=== PATIENT | female | born 1980 | race Caucasian/White ===

== ENCOUNTER 2016-12-18 06:37 | Emergency (ER) | payer OTHER ==
[~2016-12-18] VITALS: Ht 160 cm; Wt 68.2 kg
[~2016-12-18 06:37] MED LIST: IBUP-1149 PO; LOR75 PO; TIZA4TABA PO; TRAM100T2 PO
[2016-12-18 06:49] VITALS: BP 129/92; PULSE 125; RESP 20; O2SAT 96
--- NOTE | 2016-12-18 08:07 | ED.REPORT ---
[facility]-Forg Illness Date of Service Dec 18, 2016 ED Provider: Jaylan Pandya MD Patient is a 36 year old female who presents to the ED due to left ear pain onset yesterday day morning. She reports that it "hurts to swallow," and has a hx of ear infections. She complains that she feels "jittery" and denies vomiting. Pt is allergic to Amoxicillin. Nursing Notes Stated Complaint: POSS EAR INFECTION Chief Complaint: FLU/Cold Symptoms Nursing Notes Reviewed: Yes Allergies: Coded Allergies: Penicillins (Verified Allergy, Intermediate, HIVES, 12/18/16) ciprofloxacin (Verified Allergy, Unknown, 12/18/16) ciprofloxacin HCl (Verified Allergy, Unknown, 12/18/16) Uncoded Allergies: TAPE (Allergy, Severe, BLISTERS, 08/12/10) Scheduled Azithromycin (Zithromax (Z-Virgil)) 250 Mg Tablet 250 MG PO DIRECTED Take two tablets by mouth on day 1, then take one tablet daily on days 2 through 5. Hydrocod/APAP-Expunged, Do Not Renew! (VICODIN 7.5/300-Expunged Drug, Do Not Renew) 1 Ea Tablet 1 EA PO PRN IBUPROFEN-Expunged Drug, Do Not Renew! (IBUPROFEN-Expunged Drug, Do Not Renew!) 600 Mg Tablet 600 MG PO Q4 Meclizine (Bonine) 25 Mg Tab.chew 25 MG PO BID Tizanidine-Expunged Drug, Do Not Renew! (Tizanidine-Expunged Drug, Do Not Renew! ) 4 Mg Tablet 8 MG PO BID Tramadol-Expunged Drug, Do Not Renew! (Tramadol-Expunged Drug, Do Not Renew!) 100 Mg Tab.sr.24h 50 MG PO Q4 General Time Seen by Provider: 08:10 Chief Complaint Other (ear infection ) Hx Obtained From: Patient Arrived By: Walk-in Onset Occurred: 1 day ago Symptom Duration: Since onset Progression Since Onset: Gradually worsening Severity: Current: Moderate Recent Healthcare: No recent doctor visit Similar Sx Previous: Yes Past Medical History Past Medical History hx of otitis media Past Surgical History denies Smoking History Unknown if Ever Smoker Ambulatory Status Independent Review of Systems Review of Systems Note: hurts to swallow Ears / Nose / Throat: Reports: Earache bilateral GI: Denies: Vomiting Complete sys rev & neg: except as marked. Physical Exam Initial Vital Signs Vital Signs (First) Date Time Temp Pulse Resp B/P Pulse Ox O2 Delivery O2 Flow Rate FiO2 12/18/16 06:49 37.4 125 20 129/92 96 Room Air Initial VS: Reviewed, Vital signs abnormal General/Constitutional: Awake, Alert, Cooperative Neck: Atraumatic, Supple, No meningismus, Full range of motion, No adenopathy, No swelling, Non-tender, No midline vertebral tend Respiratory / Chest: Atraumatic, Breath sounds NL, Breath sounds = bilat, No respiratory distress, No rales, No rhonchi, No wheezing, No retractions Cardiovascular: Heart rate NL, Regular rhythm, Heart sounds NL, No gallop, No murmurs, No rubs Skin: Atraumatic, Color NL, Warm, Dry Neurologic: Oriented X3, Speech NL, No motor deficits, No sensory deficits Left Ear / Mastoid: Positive: Tympanic membrane red left ear TM dull, red, and thickened right ear normal Canal is partially collused Mastoid non-tender Interpretation & Diagnostics Lab Results Interpretation Lab Results Interpretation: negative for influenza A & B Re-Evaluation & MDM Med Decision/Clinical Course 36-year-old with recurrent left otitis media and vertiginous symptoms likely related to it. She was started on azithromycin, meclizine, and was given 2 Vicodin tablets here in the emergency room. She will follow up with her primary provider as needed. She is encouraged to drink lots of fluids. Re-Evaluation/Progress : Time of Eval: 08:10 Patient Status: Condition unchanged Re-Evaluation/Progress Note: Pt rechecked. Informed of diagnosis of left ear infection and treatment plan. Pt understands and agrees with plan. F/U and RTER warnings given. All questions addressed. Counseled Regarding: Diagnosis, Lab results, Need for follow-up, When/why to return to ED Patient Discharge & Departure Impression: Primary Impression: Otitis media Otitis media type: unspecified Laterality: left Chronicity: unspecified Qualified Code: H66.92 - Otitis media, unspecified, left ear Disposition: Home Discharge Condition All VS Reviewed: Yes Condition: Stable Additional Instructions: Thank you for coming to the Emergency Department today. You have an left ear infection which is putting pressure on the inner ear causing lightheadedness/ vertigo symptoms.. Drink plenty of fluids and get lots of rest. You will be given an azithromycin and meclizine, take as directed. He was given 2 Vicodin for pain, do not drive for 4-6 hours. Return to the Emergency Department for any new or worsening symptoms. We hope you feel better soon! Referrals: [facility] (PCP) Scribe Attestation Portion of this note were transcribed by Memo Garduno. I, Dr. Pandya, personally performed the history, physical exam, and medical decision-making: I reviewed and confirmed the accuracy for the information in the transcribed note. Signed by: arabella William, 12/18/16 0820 Jaylan Pandya MD Dec 18, 2016 08:07 MEMO GARDUNO Dec 18, 2016 08:20
[2016-12-18] MEDS ORDERED: HYDROcodone-APAP 5-325 mg Tablet PO ONE (08:15)
[2016-12-18] MEDS ORDERED: AZIT250T4 PO (08:28)
[2016-12-18] MEDS ORDERED: MECL-114 PO (08:28)
[2016-12-18 08:43] VITALS: BP 110/72; PULSE 104; O2SAT 98
[2016-12-18 08:51] VITALS: BP 110/72; PULSE 104; RESP 20; O2SAT 98
[2016-12-19] MEDS ORDERED: CEPH-512 PO (05:02)
[2016-12-19] MEDS ORDERED: IBUP100O80 PO (05:02)
[2016-12-19] MEDS ORDERED: LIDO20SO MM (05:35)
== END 2016-12-18 08:55 | disposition home or self-care (01) ==
LOC: SED 06:37
DX: H66.92 Otitis media, unspecified, left ear (principal); Z88.0 Allergy status to penicillin; Z88.1 Allergy status to other antibiotic agents

== ENCOUNTER 2016-12-19 04:28 | Emergency (ER) | payer OTHER ==
[~2016-12-19] VITALS: Ht 160 cm; Wt 68.2 kg
[~2016-12-19 04:28] MED LIST changes: +AZIT250T4 PO; +MECL-114 PO
[2016-12-19 04:30] VITALS: BP 134/88; RESP 18; O2SAT 100
--- NOTE | 2016-12-19 04:53 | ED.REPORT ---
HPI-General Illness Date of Service Dec 19, 2016 ED Provider: Hima Good Patient is a 36 year old female who was seen yesterday in the department for sore throat and ear pain and was diagnosed with a L ear infection. Today she presents to the ED complaining of R ear pain and worsening throat pain. Patient has not filled her prescriptions yet. She took 2 pills from her z-pack yesterday morning after her ED visit. She denies nausea, vomiting, or any other symptoms. Nursing Notes Stated Complaint: BILATERAL EAR INFECTION Chief Complaint: ENT & Mouth Nursing Notes Reviewed: Yes Allergies: Coded Allergies: Penicillins (Verified Allergy, Intermediate, HIVES, 12/19/16) ciprofloxacin (Verified Allergy, Unknown, 12/19/16) ciprofloxacin HCl (Verified Allergy, Unknown, 12/19/16) Uncoded Allergies: TAPE (Allergy, Severe, BLISTERS, 08/12/10) Scheduled Azithromycin (Zithromax (Z-Virgil)) 250 Mg Tablet 250 MG PO DIRECTED Take two tablets by mouth on day 1, then take one tablet daily on days 2 through 5. Cephalexin (Keflex) 500 Mg Capsule 500 MG PO 12/19/16 Hydrocod/APAP-Expunged, Do Not Renew! (VICODIN 7.5/300-Expunged Drug, Do Not Renew) 1 Ea Tablet 1 EA PO PRN IBUPROFEN-Expunged Drug, Do Not Renew! (IBUPROFEN-Expunged Drug, Do Not Renew!) 600 Mg Tablet 600 MG PO Q4 Meclizine (Bonine) 25 Mg Tab.chew 25 MG PO BID Tizanidine-Expunged Drug, Do Not Renew! (Tizanidine-Expunged Drug, Do Not Renew! ) 4 Mg Tablet 8 MG PO BID Tramadol-Expunged Drug, Do Not Renew! (Tramadol-Expunged Drug, Do Not Renew!) 100 Mg Tab.sr.24h 50 MG PO Q4 Scheduled PRN Ibuprofen (Child Ibuprofen) 100 Mg/5 Ml Oral.susp 400 MG PO q4-6 hours PRN PRN pain, fever Lidocaine HCl (Lidocaine HCl Viscous) 20 Mg/1 Ml Solution 20 MG MM [id number] PRN PRN throat pain General Time Seen by MD: 04:52 Chief Complaint Ear pain Hx Obtained From: Patient Arrived By: Walk-in Recent Healthcare: Recent doctor visit Similar Sx Previous: Yes Past Medical History Past Medical History hx of otitis media Past Surgical History denies Smoking History Current Every Day Smoker Social History Drug Use: THC Other Social History: Local resident Ambulatory Status Independent Review of Systems Full Review of Systems Ears / Nose / Throat: Reports: Earache right, Sore throat GI: Denies: Nausea, Vomiting Complete sys rev & neg: except as marked. Physical Exam Vital Signs Vital Signs Date Time Temp Pulse Resp B/P Pulse Ox O2 Delivery O2 Flow Rate FiO2 12/19/16 06:16 36.9 88 14 132/78 Room Air 12/19/16 04:30 36.2 110 18 134/88 100 Room Air Initial VS: Reviewed General/Constitutional: Well-developed, Well-nourished Head / Eyes: Atraumatic, Normocephalic Respiratory: No respiratory distress Abdomen / GI: Soft, Non-tender Skin: Warm, Dry Neurologic: Alert, Oriented, Nonfocal Psychiatric: Mood/affect normal, Behavior normal, Normal thought content ENT: No peritonsillar abscess, No trismus Pharynx / Tonsils / Uvula: Positive: Pharyngeal erythema Manages secretions well. Bilat exudate. L TM blocked by cerumen. R TM nL. Neck: No meningismus Bilateral adenopathy with tenderness. Re-Eval/Medical Decision Med Decision/Clinical Course 36-year-old female presents with a sore throat and sore ears, eye day after evaluation for the same issue. She has not filled her prescription yet. She did receive a starter dose of azithromycin. She does have otitis as well as a beefy red purulent-appearing throat consistent with strep. Azithromycin is probably inadequate coverage for otitis, and she was provided with Rocephin with Keflex to follow. Decadron single dose given here for relief of her throat swelling. Discharged in stable condition. No evidence of retropharyngeal abscess. Abscess precautions discussed in detail. Time of Eval: 05:06 Patient Status: Condition unchanged Re-Evaluation/Progress Note: Rechecked patient. Discussed plan for discharge. Patient understands and agrees with plan. All questions addressed at this time. Counseled Regarding: Diagnosis, Need for follow-up, When/why to return to ED Discharge & Departure Shift Change Sign-Out Response to Therapy: Improved Primary Impression: Pharyngitis Additional Impression: Otitis media Disposition: Home Discharge Condition All VS Reviewed: Yes Condition: Stable Patient Instructions: Pharyngitis (ED), Peritonsillar Abscess (ED), Otitis Media (ED) Additional Instructions: We do not see evidence of an abscess in your throat, but if your symptoms worsen despite treatment, return for reevaluation. Keflex three times daily for ten days Clear fluids and advance as tolerated to normal diet Motrin or Tylenol for fever and discomfort. Follow-up with your doctor in the office. May follow-up with residency clinic if local physician needed. Referrals: [facility] Scribe Attestation Portions of this note were transcribed by Mason Lucas. I, Dr. Good personally performed the history, physical exam and medical decision-making; I reviewed and confirmed the accuracy of the information in the transcribed note. Signed by: Mason Lucas 12/19/16, 0511 copies to: [facility] [place] Good MD Dec 19, 2016 04:52 MASON LUCAS Dec 19, 2016 04:59
[2016-12-19] MEDS ORDERED: Dexamethasone 20 mg/2 mL Oral Solution PO ONE (05:00)
[2016-12-19] MEDS ORDERED: cefTRIAXone Inj 500 MG, Lidocaine PF 1% Inj 1 ML in Syringe 1 EACH IM ONE (05:00)
[2016-12-19] MEDS ORDERED: CEPH-512 PO (05:02)
[2016-12-19] MEDS ORDERED: IBUP100O80 PO (05:02)
[2016-12-19] MEDS ORDERED: Ibuprofen Suspension 20 mg/mL 5 mL Suspension PO ONE (05:05)
[2016-12-19] MEDS ORDERED: LIDO20SO MM (05:35)
[2016-12-19 06:16] VITALS: BP 132/78; PULSE 88; RESP 14
== END 2016-12-19 05:03 | disposition home or self-care (01) ==
LOC: SED 04:28
DX: J02.9 Acute pharyngitis, unspecified (principal); H66.93 Otitis media, unspecified, bilateral; F17.200 Nicotine dependence, unspecified, uncomplicated; Z88.0 Allergy status to penicillin; Z88.1 Allergy status to other antibiotic agents
CPT/HCPCS: 96372; 99283; J0696

== ENCOUNTER 2017-04-02 20:44 | Emergency (ER) | payer OTHER ==
[~2017-04-02] VITALS: Ht 160 cm; Wt 68.2 kg
[~2017-04-02 20:44] MED LIST changes: +CEPH-512 PO; +IBUP100O80 PO; +LIDO20SO MM
[2017-04-02 20:57] VITALS: BP 155/96; PULSE 129; RESP 20; O2SAT 99
--- NOTE | 2017-04-02 21:29 | ED.REPORT ---
HPI-Back Pain Under 40 Date of Service April 02, 2017 ED Provider: Jaylan Pandya MD Pt is a 36 year old female with a history of herniated L4 and L5, and a kidney infection who presents to the ED complaining of vaginal pain onset yesterday morning. The pt is also complaining of diarrhea, dysuria, and left sided lower back pain. She denies nausea, abdominal pain, and vomiting. The pt has had a UTI before when she was with her daughter. Nursing Notes Stated Complaint: POSS KIDNEY INFECTION Chief Complaint: Back Pain or Injury Nursing Notes Reviewed: Yes Allergies: Coded Allergies: Penicillins (Verified Allergy, Intermediate, HIVES, 12/19/16) ciprofloxacin (Verified Allergy, Unknown, 12/19/16) ciprofloxacin HCl (Verified Allergy, Unknown, 12/19/16) Uncoded Allergies: TAPE (Allergy, Severe, BLISTERS, 08/12/10) Scheduled Azithromycin (Zithromax (Z-Virgil)) 250 Mg Tablet 250 MG PO DIRECTED Take two tablets by mouth on day 1, then take one tablet daily on days 2 through 5. Cefuroxime Axetil (Cefuroxime) 500 Mg Tablet 500 MG PO BID Cephalexin (Keflex) 500 Mg Capsule 500 MG PO 12/19/16 Hydrocod/APAP-Expunged, Do Not Renew! (VICODIN 7.5/300-Expunged Drug, Do Not Renew) 1 Ea Tablet 1 EA PO PRN IBUPROFEN-Expunged Drug, Do Not Renew! (IBUPROFEN-Expunged Drug, Do Not Renew!) 600 Mg Tablet 600 MG PO Q4 Meclizine (Bonine) 25 Mg Tab.chew 25 MG PO BID Tizanidine-Expunged Drug, Do Not Renew! (Tizanidine-Expunged Drug, Do Not Renew! ) 4 Mg Tablet 8 MG PO BID Tramadol-Expunged Drug, Do Not Renew! (Tramadol-Expunged Drug, Do Not Renew!) 100 Mg Tab.sr.24h 50 MG PO Q4 Scheduled PRN Ibuprofen (Child Ibuprofen) 100 Mg/5 Ml Oral.susp 400 MG PO q4-6 hours PRN PRN pain, fever Lidocaine HCl (Lidocaine HCl Viscous) 20 Mg/1 Ml Solution 20 MG MM [id number] PRN PRN throat pain General Time Seen by MD: 21:26 Chief Complaint Other (Vaginal pain) Hx Obtained From: Patient Arrived By: Walk-in Sudden in Onset?: Yes Onset Occurred: Just prior to arrival Symptom Duration: 1 day Quality: Painful, Stabbing Severity: Current: Moderate Severity: Maximum: Moderate Recent Healthcare: No recent hospitalization, Recent doctor visit Similar Sx Previous: No Past Medical History Past Medical History hx of otitis media herniated L4 and L5 kidney infection UTI Past Surgical History none reported Smoking History Current Every Day Smoker Social History Other Social History: Local resident Ambulatory Status Independent Review of Systems Review of Systems Note: vaginal pain GI: Reports: Diarrhea, Denies: Abdominal pain, Nausea, Vomiting Female: Reports: Dysuria, Pelvic pain Musculoskeletal: Reports: Back pain Complete sys rev & neg: except as marked. Physical Exam Initial Vital Signs Vital Signs (First) Date Time Temp Pulse Resp B/P Pulse Ox O2 Delivery O2 Flow Rate FiO2 04/02/17 20:57 36.5 129 20 155/96 99 Room Air Initial VS: Reviewed, Vital signs abnormal General/Constitutional: Awake, Alert Behavior: Positive: Tearful Mild to moderate distress Back: Atraumatic, Full range of motion Left CVAT Neurologic: Oriented X3, Speech NL Respiratory / Chest: Atraumatic, Breath sounds NL Abdomen: Atraumatic Diffuse abdominal tenderness, with more pain on the left side. No suprapubic tenderness Lower Extremity / Pelvis / MS: Atraumatic, Full range of motion Head / Eyes: Atraumatic, Normocephalic, PERRL, EOMI ENT: Atraumatic, Airway patent, Mucous membranes moist Upper Extremity / MS: Atraumatic, Full range of motion Skin: Atraumatic, Color NL, No rash, Warm, Dry Psychiatric: Affect NL, Mood NL Interpretation & Diagnostics Lab Results Interpretation Result Diagram: 04/02/17222404/02/172224 Test 04/02/17 21:30 04/02/17 21:55 04/02/17 22:25 Urine Color Yellow (YELLOW) Urine Appearance Slightly cloudy Urine pH 7.0 (5.0-8.0) Urine Specific [place] 1.025 (1.003-1.035) Urine Protein 100mg/dL (NEG,TRACE) Urine Glucose (UA) 500mg/dL (NEGATIVE) Urine Ketones Negativemg/dL (NEGATIVE) Urine Occult Blood Large (NEGATIVE) Urine Nitrite Positive (NEGATIVE) Urine Bilirubin Negative (NEGATIVE) Urine Urobilinogen Normalmg/dL (NORMAL) Urine Leukocyte Esterase Negative (NEGATIVE) Urine RBC 11-50/hpf (0-2) Urine WBC >50/hpf (0-5) Urine Epithelial Cells Moderate/hpf (NONE-MOD) Urine Crystals None seen (NONE SEEN) Urine Bacteria Many/hpf (NONE-FEW) Urine Hyaline Casts None/lpf (NONE) Urine Granular Casts None seen (NONE SEEN) Urine Waxy Casts None seen (NONE SEEN) Urine Red Blood Cell Casts None seen (NONE SEEN) Urine White Blood Cell Casts None seen (NONE SEEN) Urine Mucus Present (None Seen) Urine Trichomonas None seen (NONE SEEN) Urine Yeast None (NONE SEEN) Urine Culture Reflexed Indicated Hold Urine Received (Received) White Blood Count 12.7th/mm3 (3.8-10.1) Red Blood Count 4.65mil/mm3 (3.90-5.20) Hemoglobin 13.0g/dL (12.0-15.6) Hematocrit 38.2% (35.0-46.0) Mean Corpuscular Volume 82.2fL (81-100) Mean Corpuscular Hemoglobin 28.0pg (27.0-35.0) Mean Corpuscular Hemoglobin Concent 34.0% (32.0-37.0) Red Cell Distribution Width 14.6% (12.3-15.4) Platelet Count 163bil/L (150-400) Neutrophils (%) (Auto) 69.6% (40-74) Lymphocytes (%) (Auto) 20.7% (14-46) Monocytes (%) (Auto) 8.5% (4-12) Eosinophils (%) (Auto) 0.8% (0-5) Basophils (%) (Auto) 0.2% (0-3) Sodium Level 139mEq/L (134-144) Potassium Level 3.7mEq/L (3.5-5.2) Chloride Level 99mEq/L (97-108) Carbon Dioxide Level 24mmol/L (18-29) Blood Urea Nitrogen 10mg/dL (6-20) Creatinine 0.45mg/dL (0.57-1.00) Estimat Glomerular Filtration Rate 228mL/min (>59) Glucose Level 159mg/dL (60-99) Lactic Acid Level 1.4mmol/L (0.4-2.0) Calcium Level 9.2mg/dL (8.5-10.1) Magnesium Level 2.1mg/dL (1.6-2.6) Total Bilirubin 0.2mg/dL (0.0-1.2) Aspartate Amino Transf (AST/SGOT) 16U/L (0-50) Alanine Aminotransferase (ALT/SGPT) 16U/L (0-32) Alkaline Phosphatase 84U/L (25-150) Total Protein 7.9g/dL (6.4-8.4) Albumin 4.4g/dL (3.4-5.0) Lipase 18U/L (13-60) Lab Results Interpretation: Mildly elevated white blood count. Mildly elevated nonfasting glucose. Lactic acid normal. Urinalysis is indicative of urinary tract infection, culture pending. Re-Eval/Medical Decision Med Decision/Clinical Course 46-year-old female with urinary tract infection, possibly pyelonephritis. She was hydrated and given first dose of antibiotics IV. She will be discharged home with Keflex prepack. Please see discharge for details. Source of Hx: Old records Re-Evaluation/Progress : Time of Eval: 03:40 Patient Status: Condition improved Re-Evaluation/Progress Note: Pt rechecked. Informed pt of plan for discharge. Pt understands and agrees with plan for discharge. F/U instructions and RTER warnings given. All questions addressed. Counseled Regarding: Diagnosis, Lab results, Need for follow-up, When/why to return to ED Discharge & Departure Impression: Primary Impression: Urinary tract infection Urinary tract infection type: site unspecified Hematuria presence: without hematuria Qualified Code: N39.0 - Urinary tract infection, site not specified Disposition: Home All VS Reviewed: Yes Condition: Stable Patient Instructions: Kidney Infection (ED) Additional Instructions: You definitely have a urinary tract infection, possibly the kidneys. You received Rocephin 2 g IV to be followed by cefuroxime 500 mg by mouth twice a day for 10 days, #20 prescribed. Drink plenty of fluids and cranberry juice. Return here if you have significant worsening especially high fevers, rapid heart rate or dizziness with standing. Referrals: [facility] Scribe Attestation Portions of this note were transcribed by Kiera Servin and Serena Spear. I, Dr. Pandya personally performed the history, physical exam and medical decision-making; I reviewed and confirmed the accuracy of the information in the transcribed note. Signed by: Kiera Servin and John Gatica, and [id number]. copies to: [facility] Jaylan Pandya MD April 02, 2017 21:29 Serena Weber April 02, 2017 21:38 KIERA SERVIN April 02, 2017 23:07 John Spear, 04/02/17 and 22:30 copies to: [facility] Jaylan Pandya MD April 02, 2017 21:29 Serena Weber April 02, 2017 21:38 KIERA SERVIN April 02, 2017 23:07
[2017-04-02] MEDS ORDERED: 0.9% Sodium Chloride 1,000 ML IV ONE (21:57)
[2017-04-02] MEDS ORDERED: Ondansetron 2 mg/mL 2 mL Inj IVPUSH PRN (22:00)
[2017-04-02] MEDS ORDERED: cefTRIAXone Inj 2,000 MG in Dextrose 5% Minibag Plus 50 ML IV ONE (22:00)
[2017-04-02 22:21] LABS: APPEARANCE,URINE SLIGHTLY CLOUDY (CLEAR,HAZY); COLOR,URINE YELLOW (YELLOW); OCCULT BLOOD,URINE LARGE (NEGATIVE); UROBILINOGEN,URINE NORMAL (NORMAL)
[2017-04-02] MEDS ORDERED: Ketorolac 15 mg/mL Inj IVPUSH ONE (22:30)
[2017-04-02 22:33] LABS: BASOPHILS % (AUTO) 0.2 % (0-3); EOSINOPHILS % (AUTO) 0.8 % (0-5); MONOCYTES % (AUTO) 8.5 % (4-12); Mean Corpuscular Volume 82.2 fL (81-100); NEUTROPHILS % (AUTO) 69.6 % (40-74); Platelet Count 163 bil/L (150-400)
[2017-04-02 22:42] VITALS: BP 127/75; PULSE 100; O2SAT 98
[2017-04-02 22:59] LABS: Magnesium 2.1 mg/dL (1.6-2.6)
[2017-04-03 01:23] VITALS: BP 126/86; PULSE 102; RESP 18; O2SAT 97
[2017-04-03 03:29] VITALS: BP 132/77; PULSE 101; RESP 16; O2SAT 98
[2017-04-03] MEDS ORDERED: CEFU500T61 PO (03:52)
[2017-04-03 04:06] VITALS: BP 132/77; PULSE 101; RESP 16; O2SAT 98
== END 2017-04-03 04:06 | disposition home or self-care (01) ==
LOC: SED 20:44
DX: N39.0 Urinary tract infection, site not specified (principal); B96.20 Unspecified Escherichia coli [E. coli] as the cause of diseases classified elsewhere; F17.200 Nicotine dependence, unspecified, uncomplicated; Z87.39 Personal history of other diseases of the musculoskeletal system and connective tissue; Z87.440 Personal history of urinary (tract) infections; Z88.0 Allergy status to penicillin; Z88.1 Allergy status to other antibiotic agents
CPT/HCPCS: 36415; 80053; 81000; 81025; 82948; 83605; 83690; 83735; 85025; 87086; 87088; 87186; 96361; 96365; 96375; 99285; J0696; J1885; J7030